=== PATIENT | male | born 1995 | race Caucasian/White ===

== ENCOUNTER 2020-11-07 09:32 | Emergency (ER) | payer OTHER, SELFPAY ==
[2020-11-07 09:45] VITALS: BP 134/98; PULSE 62; RESP 18; TEMP 37.1; O2SAT 100
--- NOTE | 2020-11-07 09:59 | ED.SKABFB ---
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 Patient states he was working on the ground in a [place]ed area, and sustained multiple tick bites on trunk and extremities. He removed multiple ticks within about a day, which were slightly engorged. He complains of mild itch from the discrete sites. No fever, other rash; symptoms mild worse with scratching. Related Data Allergies Allergy/AdvReac Type Severity Reaction Status Date / Time No Known Allergies Allergy Verified 11/07/20 09:49 Review of Systems Review of Systems: The patient has been informed that they may have pre-hypertension or Hypertension based on a BP reading in the department. I recommend that the patient call the primary care provider listed on their discharge instructions or a physician of their choice this week to arrange follow up for further evaluation of possible pre-hypertension or Hypertension General/Constitutional: No weight loss,fever Eyes: N0: Redness,discharge Ears/Nose/Throat: No: Epistaxis,ear discharge Respiratory: Denies: Hemoptysis Gastrointestinal: No Vomiting, Bleeding-rectal Skin: No Lumps, REPORTS eruption Neurologic: No Focal Weakness,Sz Hematologic: Denies: Petechiae/Purpura Psychiatric: No: Suicida ideationl All Other Systems: Reviewed and Negative PMFSH Comments At time of signature, agree with nursing past medical, surgical, social and family history. There is no relevant family history pertinent to the presenting complaint Exam Narrative: General Appearance: Well nourished, Normocephalic, Conjunctiva clear Ear: External ear normal Nose: Normal nose, Nare clear Mouth/Throat: Normal appearing Neck Exam: Supple Respiratory: Airway patent, No respiratory distress Musculoskeletal: Moves all extremities, Non tender Skin: Warm, Dry widespread, discrete small, isolated macular papular skin eruption of trunk, and extremities Neurological: A&O x3, Normal affect Course Vital Signs Vital signs: Vital Signs Temperature 98.8 F 11/07/20 09:45 Pulse Rate 62 11/07/20 09:45 Respiratory Rate 18 11/07/20 09:45 Blood Pressure 134/98 H 11/07/20 09:45 Pulse Oximetry 100 11/07/20 09:45 Temperature 98.8 F 11/07/20 09:45 Pulse Rate 62 11/07/20 09:45 Respiratory Rate 18 11/07/20 09:45 Blood Pressure 134/98 H 11/07/20 09:45 Pulse Oximetry 100 11/07/20 09:45 Discharge Plan Discharge Clinical Impression: Tick bite Qualifiers: Encounter type: initial encounter Site of tick bite: thoracic wall Front or back of thoracic wall: unspecified whether front or back Qualified Code(s): S20.96XA - Insect bite (nonvenomous) of unspecified parts of thorax, initial encounter Patient Disposition: Home, Self-Care Condition: Stable Instructions: Tick Bite (ED) Additional Instructions: Keep photo log of area of, follow provided instructions Prescriptions: New prednisone 20 mg tablet 60 mg PO DAILY Qty: 15 RF: 0 doxycycline hyclate 100 mg tablet 100 mg PO DAILY Qty: 14 RF: 0 Follow-up/Referrals: Lisandro Pat DO [Primary Care Provider] -
== END 2020-11-07 10:13 | disposition home or self-care (01) ==
PROVIDERS: Emergency Provider Emergency Medicine; PCP Internal Medicine
DX: S20.96XA Insect bite (nonvenomous) of unspecified parts of thorax, initial encounter (principal); W57.XXXA Bitten or stung by nonvenomous insect and other nonvenomous arthropods, initial encounter
CPT/HCPCS: 99213; G0463